=== PATIENT | male | born 1960 | race Caucasian/White ===

== ENCOUNTER 2025-02-25 06:27 | Day surgery (SDC) | payer BC, SELFPAY ==
[2025-02-17 09:02] LABS: Hematocrit 43.8 % (39.0-52.0); Hemoglobin 14.6 g/dL (13.0-18.0); Mean Corp Hgb Conc. 33.3 g/dL (33.0-37.0); Mean Corpuscular Volume 91.6 fL (80.0-94.0); Platelet Count 225 10^3/uL (130-400); Red Cell Dist. Width 12.7 % (11.5-14.5)
[2025-02-17 09:34] LABS: Blood Urea Nitrogen 20 mg/dl (9-20); Calcium 9.5 mg/dl (8.4-10.2); Carbon Dioxide 30 mmol/L (22-30); Chloride 104 mmol/L (98-107); Glucose 93 mg/dl (70-99); Potassium 4.6 mmol/L (3.5-5.1); Sodium 140 mmol/L (135-145); eGFR > 60.00
[2025-02-17 14:00] VITALS: BMI 31.2
[2025-02-25 07:41] VITALS: BMI 31.2
[2025-02-25 07:49] VITALS: BP 135/77
[2025-02-25] MEDS: NORMOSOL-R/PLASMALYTE-A 1000 IV (08:01)
[2025-02-25 09:57] VITALS: BP 117/73; BP 135/77
[2025-02-25 10:00] VITALS: BP 115/75
[2025-02-25 10:15] VITALS: BP 114/87
[2025-02-25 10:30] VITALS: BP 110/68
[2025-02-25 10:45] VITALS: BP 108/68
== END 2025-02-25 11:07 | disposition home or self-care (01) ==
LOC: SDS 06:27
PROVIDERS: ATTENDING PHYSICIAN Specialist; FAMILY PHYSICIAN Family Medicine
DX: N43.42 Spermatocele of epididymis, multiple (principal); Z98.890 Other specified postprocedural states
CPT/HCPCS: 54840; 36415; 80048; 85027; 88304; 93005